=== PATIENT | male | born 1970 | race Caucasian/White ===

== ENCOUNTER → 2022-03-01 00:42 | Outpatient (CLI) | payer OTHER, SELFPAY ==
--- NOTE | 2022-03-01 07:30 | DI.MRI_ITS ---
Exam(s) MR UPPER JOINT RT WO EXAM: MR UPPER JOINT RT WO CLINICAL HISTORY: ? internal derangement,persistent pain,m25.511 TECHNIQUE: Multiplanar multisequence MRI of the shoulder was performed. COMPARISON: CR XR EYE FOREIGN BODY from 03/01/2022 FINDINGS: MARROW:No evidence of fracture or Hill-Sachs deformity. There are confluence of degenerative subarti cular cysts in the greater tuberosity (see below). No degenerative subarticular cyst in the lesser t uberosity nor within the osseous glenoid. ROTATOR CUFF MECHANISM: AC JOINT/ACROMIUM: AC joint exhibits only mild degenerative change. No prominent downgoing osteophyt es. No calcification evident within the coracoacromial ligament.. There is no evidence of os acromiale. Supraspinatus: There is articular surface side partial tearing of the supraspinatus at the foot pad i nsertional aspect on the greater tuberosity. This is immediately subjacent to the degenerative subar ticular cyst at this level. There is no full-thickness tear. No fluid in the subacromial-subdeltoid bursa. No muscle atrophy. Infraspinatus: Intact. No evidence of tear nor muscle atrophy. Teres Minor: Intact. No evidence of tear nor muscle atrophy. Subscapularis/anterior cuff: Mild tendinitis signal. No tear. BICEPS TENDON: Normally position in the intertubercular groove. No evidence of tear. No tenosynovitis. LABRUM: No labral tear identified. No evidence of paralabral cyst. Inferior glenohumeral ligament is intact. GLENOHUMERAL JOINT: No joint effusion nor obvious loose intra-articular bodies. No chondral defects. No osteophytes. No degenerative subarticular cysts. QUADRILATERAL SPACE: No evidence of mass in the region of the axillary nerve and dorsal circumflex hu meral vessels. Visualized triceps muscle at this level appears unremarkable. IMPRESSION: 1. There is a partial-thickness tear of the supraspinatus tendon at the foot pad insertional aspect j ust above the greater tuberosity. There is cystic degenerative change within the greater tuberosity i mmediately subjacent this finding. There is no retraction of the musculotendinous junction. Infraspin atus appears unremarkable. 2. Mild tendinitis signal noted in the anterior cuff-subscapularis but no significant tear of this st ructure. 3. Biceps tendon is intact and there are no obvious labral tears evident. No significant degenerative changes in the glenohumeral joint. No joint effusion. No loose intra-annette cular bodies. DATA REPOSITORY:
--- NOTE | 2022-03-01 07:30 | DI.RAD_ITS ---
Exam(s) XR EYE FOREIGN BODY EXAM: XR EYE FOREIGN BODY CLINICAL HISTORY: Pre MRI - check for metal,rt shoulder pain. TECHNIQUE: 2D digital imaging was performed. COMPARISON: No exams were available for comparison FINDINGS: 3 views No fractures. No fluid in the visualized paranasal sinuses. No radiopaque foreign body in the regio n of the orbits. IMPRESSION: No radiopaque foreign bodies. DATA REPOSITORY: RADIATION DOSE DELIVERED:
== END ==
PROVIDERS: PCP Family Medicine; Visit Provider Nurse Practitioner Family
DX: M75.101 Unspecified rotator cuff tear or rupture of right shoulder, not specified as traumatic (principal)
CPT/HCPCS: 70030; 73221

== ENCOUNTER 2022-04-10 14:56 | Outpatient (CLI) | payer OTHER, SELFPAY ==
--- NOTE | 2022-04-10 14:45 | DI.RAD_ITS ---
Exam(s) XR SHOULDER RT COMPLETE 2+V EXAM: XR SHOULDER RT COMPLETE 2+V CLINICAL HISTORY: RIGHT SHOULDER PAIN. TECHNIQUE: 2D digital imaging was performed. COMPARISON: No exams were available for comparison FINDINGS: 3 views No evidence of fracture or dislocation. No joint space narrowing. Subacromial space is not diminish ed and there are no soft tissue calcifications. Deformity at the midshaft of the clavicle is probabl y healed fracture site. AC joint is not distracted and there are only minimal degenerative changes i n the AC joint. IMPRESSION: No significant findings in the glenohumeral joint. DATA REPOSITORY: RADIATION DOSE DELIVERED:
== END 2022-04-10 14:57 | disposition home or self-care (01) ==
LOC: DIORS 14:57
PROVIDERS: PCP Family Medicine; Referring Provider Family Medicine; Visit Provider Student in an Organized Health Care Education/Training Program
DX: M25.511 Pain in right shoulder (principal); M25.811 Other specified joint disorders, right shoulder
CPT/HCPCS: 73030

== ENCOUNTER → 2023-02-03 01:39 | Outpatient (CLI) | payer BC, SELFPAY ==
[2023-02-03] MEDS: Barium Sulfate 60% W/V 355 ML BTL PO (11:02)
[2023-02-03] MEDS: Barium Sulfate 98% W/W 140 ML BTL 70 ML PO (11:02)
[2023-02-03] MEDS: Simethicone/Sod Bicarb/Cit Ac, 4 gram PACKET 1 PACKET PO (11:05)
--- NOTE | 2023-02-03 11:06 | DI.RAD_ITS ---
Exam(s) RF BARIUM SWALLOW EXAM: RF BARIUM SWALLOW CLINICAL HISTORY: progressive dysphagia cp level,r13.14 TECHNIQUE: 2D and realtime digital imaging was performed. CONTRAST MATERIAL: Oral barium Oral water soluble contrast was administered. COMPARISON: No exams were available for comparison FINDINGS: FINDINGS: This esophagram was performed both standing and recumbent. There was no aspiration evident. No prominent hypertense upper esophageal sphincter. There is a ismael y thin shallow web on the anterior aspect of the uppermost esophagus which projects only into the ant erior 8th of the lumen and does not appear obstructive. There is no stricture at this level. There is some tertiary waves demonstrated in the esophagus. No Schatzki ring evident but there is a hiatal hernia which measures up to 6 cm by 5.5 cm. There does not appear to be an obvious stricture at thi s level. IMPRESSION: 6 x 5 cm hiatal hernia. Tertiary waves demonstrated in the esophagus but no prominent stasis nor ach alasia nor obvious strictures. Thin self-web noted on the anterior wall of the uppermost esophagus which is nonobstructive. RADIATION DOSE DELIVERED: hedy Dewey=52.7 mGy
== END ==
PROVIDERS: PCP Family Medicine; Visit Provider Otolaryngology
DX: K44.9 Diaphragmatic hernia without obstruction or gangrene
CPT/HCPCS: 74221; J3490

== ENCOUNTER → 2023-02-11 00:25 | Outpatient (CLI) | payer BC, SELFPAY ==
--- NOTE | 2023-02-11 07:15 | DI.US_ITS ---
Exam(s) US NEEDLE LOCAL OTHER WO RAD EXAM: US NEEDLE LOCAL OTHER WO RAD CLINICAL HISTORY: rt tr5 lesion,ultrasound guided bx,abnl imaging,e04.1. COMPARISON: US US SOFT TISSUE HEAD/NECK from 01/06/2023 TECHNIQUE: Ultrasound was provided for Dr. Bowers for guidance with performing thyroid nodule biopsy . FINDINGS: The see procedure note for details. DATA REPOSITORY:
--- NOTE | 2023-02-11 11:40 | PAPNONF_PTH ---
PATIENT: Rob Haynes LOC: [facility] U#:[id number] AGE/SX: 54/M ROOM: RE02/11/[address]: Hubert Bowers MD : 1970 BED: DIS: SPEC #: [id number] RECD: 02/11/23 12:56 STATUS: NEELAM REQ #: [id number] LANDON: 02/11/23 11:[address]: Hubert Bowers DEPT: [facility] Cytology RECD BY: Ioana Rosales ENTERED: 02/11/23 12:58 SP TYPE: PAPBASIL TYLER DR: Delfina Pulido Tissues: 1 - BODY FLUID CYTO-FINE NEEDLE ASPIRATE-[facility] Procedures: BODY FLUID CYTO-FINE NEEDLE ASPIRATE-[facility] Comments: [id number] (PATH FNA CONSULT) (REFRIGERATED)
--- NOTE | 2023-02-11 11:48 | W.PROCNOTE ---
Date of service: 02/11/23 Time of Service: 11:48 Procedure Note Date of procedure: 02/11/23 Procedure: Ultrasound-guided FNA, right thyroid nodule, pathology present Procedure Diagnosis: Right thyroid nodule, TR 5, 1.1 cm Procedure Indications: Patient with a right-sided TR five 1.1 cm nodule within the thyroid. Options were explained to the patient regarding further management. He elected to undergo the above procedure. Consent was filled out and signed prior to the procedure. The below was then performed. Procedure Description: The patient was positioned in the supine position with his neck slightly extended. Ultrasound was used to localize the thyroid nodule on the right and then 1% lidocaine with 1/100,000 epinephrine was injected in the skin and subcutaneous tissues overlying the thyroid nodule. 25-gauge needle was then passed repeatedly into the thyroid nodule, and then handed to pathology who confirmed adequate cellularity. 2 additional passes were made for potential Afirma testing. There is no significant bleeding. After ensuring adequate hemostasis, sterile dressing was applied. The patient was then allowed to stand and ambulate. His vital signs remained stable. He will remove the bandage in the next hour. He will use ibuprofen or Tylenol for any discomfort. He will call if he does not hear from me within 1 week with regard to pathology results. He will call with any signs of infection or any concerns. He had no further questions. He is comfortable with plan.
== END ==
PROVIDERS: PCP Family Medicine; Visit Provider Otolaryngology
DX: E04.1 Nontoxic single thyroid nodule (principal)
CPT/HCPCS: 10005; 76942; 88104

== ENCOUNTER 2023-03-17 10:23 | Day surgery (SDC) | payer BC, SELFPAY ==
--- NOTE | 2023-03-16 18:09 | W.PM.DSUDISC ---
Date of service: 03/17/23 Time of Service: 12:09 Discharge Plan Disposition Patient Disposition: Home Condition: Good Discharge Details Reason For Visit: Diagnostic EGD Attending Provider: Juan Carlos Livingston Primary Care Provider: Luz Marina Gamble Home Meds and New Rx's Prescriptions: Continued lisinopril 20 mg tablet 20 mg PO DAILY duloxetine 20 mg capsule,delayed release(DR/EC) 20 mg PO DAILY atorvastatin [Lipitor] 20 mg tablet 20 mg PO DAILY metoprolol succinate 50 mg tablet extended release 24 hr 50 mg PO DAILY tamsulosin 0.4 mg capsule 0.4 mg PO DAILY cyanocobalamin (vitamin B-12) 1,000 mcg capsule 1,000 mcg PO DAILY folic acid 1 mg tablet 1 mg PO DAILY fluticasone propionate [Flonase Allergy Relief] 50 mcg/actuation spray,suspension 2 spray intranasal Q12H Rx Instructions: administer into each nostril buprenorphine-naloxone 2-0.5 mg tablet, sublingual 1 tab sublingual DAILY Patient Comments: Per Pt 03/12/23 pt self medicates, is down to 1 mg.CLAUDIA Booker gabapentin 300 mg capsule 900 mg PO HS epinephrine [EpiPen] 0.3 mg/0.3 mL auto-injector 0.3 mg IM DIRECTED PRN Rx Instructions: do not exceed 3 doses per episode meloxicam 7.5 mg tablet 7.5 mg PO DAILY omeprazole 20 MG capsule,delayed release(DR/EC) 20 mg PO DAILY zolpidem 10 mg tablet 10 mg PO HS PRN Patient Comments: TAKE 1 TABLET BY MOUTH EVERY DAY AT BEDTIME NEEDED Discharge Instructions Instructions: Portal Hypertension (GEN) Additional Instructions: Anish, we were able to complete your upper endoscopy today without any difficulty. With regards to the symptoms that you have been experiencing, I suspect this may be a result of a gastric inlet patch. We talked a little bit about this in the office. Essentially, it is an abnormal growth of stomach lining tissue that occurs in your esophagus. As it produces acid, that tends to cause irritation of the upper portion of the swallowing pathway resulting in the sensation of a mass, or something in your throat. The typical treatment involves use of proton pump inhibitors. You are already prescribed a medication called omeprazole. This is the most common type of proton pump inhibitor, and generally is one of the better options for your symptoms. It is also possible that Helicobacter pylori is contributing to this. H. pylori is an infection that ramps up stomach acid production. If there is any evidence of it in the biopsies, then you will need treatment with an antibiotic. Incidentally, you also have some changes in your stomach that appear consistent with mild portal hypertensive gastropathy. This typically occurs in patients who have chronic changes of the liver that results in increased pressure within the blood vessels that drain into it. I recommend stopping all alcohol use, and tobacco products if possible. Portal hypertensive gastropathy is typically seen in patients with cirrhosis, and alcohol consumption is the most typical cause of cirrhosis in these cases. If unchecked, this can result in chronic liver failure which can become a life-threatening problem. Once I have the results of all the biopsies done today I will be in touch with my recommendations with any other treatments. 1. If tolerated, consume a soft, low fiber diet for 1-2 days. 2[address] Do not drive, drink alcohol, operate machinery, make critical decisions, or do activities that require coordination or balance for 24 hours. 3. You may experience a sore throat for 24 to 48 hours. You may use throat lozenges or gargle with warm salt water to relieve the discomfort. 4. Because air was put into your stomach during the procedure, you may experience some belching. 5. Go directly to the emergency room if you notice any of the following: Develop chills (warm to touch), or if you have a thermometer and your temperature is above 101 Difficulty breathing or difficultly swallowing Persistent vomiting Severe abdominal pain, other than gas cramps Severe chest pain Black, tarry stools Any bleeding ? exceeding one tablespoon 6. Call your physician if the site where your intravenous was started becomes red, swollen, painful, and warm to touch. 7. Your physician has reviewed your pre-procedure medications. Please continue to take those medications as previously ordered. You will be given specific information/education regarding any changes to your medications before leaving. Activity:: Activity as Tolerated Diet:: As Tolerated Discharge Orders Discharge Orders: Discharge Order (Routine); Ordered 03/16/23 Ordered By: Juan Carlos Livingston DS: Diagnosis Discharge Diagnosis (1) Esophageal dysphagia: Status: Acute Asessment and Plan: Possible gastric inlet patch; follow-up on pathology results
--- NOTE | 2023-03-16 18:11 | ENDO_ITS ---
Date of service: 03/17/23 Time of Service: 12:13 Endoscopy Report DATE OF PROCEDURE: 03/17/23 PRE-OP DIAGNOSIS: Dysphagia POST-OP DIAGNOSIS: other (Portal hypertensive gastropathy, gastric polyp, possible gastric inlet patch) PROCEDURE: EGD with biopsies SURGEON: Juan Carlos Livingston ANESTHESIA TYPE: General:No Airway ESTIMATED BLOOD LOSS: 10 PATHOLOGY: other (Random biopsies of gastric antrum and body, gastric polyp, upper esophageal biopsies) COMPLICATIONS: None DISPOSITION: same day INDICATIONS: Anish is 52 years old and he has been experiencing dysphagia refractory to medical therapy. [place] swallow does not reveal a source. PROCEDURE START TIME: :47 PROCEDURE END TIME: FINDINGS: Hypertensive gastropathy, gastric polyp, grade 3 hiatal hernia, gastric inlet patch PROCEDURE DESCRIPTION: After the initiation of monitored anesthetic care, and with the assistance of a bite block, I advanced a standard gastroscope through the mouth past the hypopharynx and into the esophagus.? Under the direct vision of the scope, I advanced down the esophagus into the stomach.? Once I entered the stomach, I performed a brief inspection, followed by retroflexion towards the gastric cardia.? There is a grade 3 hiatal hernia. There was no evidence of ulceration around the diaphragmatic hiatus. The camera was turned antegrade, and passed down towards the gastric antrum. There appeared to be chronic changes of the mucosa mostly arising from the gastric antrum and slightly into the gastric body. Clinically, they appear consistent with portal hypertensive gastropathy. I saw no evidence of any gastric ectatic varices. There is no discrete ulceration. Next, I advanced the camera through the pylorus into the duodenum. The duodenum was totally normal-appearing. I then brought the camera back into the stomach. In order to rule out Helicobacter pylori, I perform random biopsies of gastric antrum and body using cold forceps. There was minimal bleeding. I brought the camera back up to the GE junction. Just past the GE junction at the top of the gastric rugae was a small gastric polyp. I removed this with cold forceps, and there was minimal bleeding here. The Z-line was normal and regular appearing around 37 cm from the incisors. I then brought the camera back up into the lower esophagus. The lower and mid esophagus were totally normal. As the camera back up into the upper esophagus was a small patch towards the patient's right side that appeared clinically consistent with a gastric inlet patch. I did perform cold forceps biopsies here. There was minimal bleeding. I sent the camera back down into the stomach and completely emptied it afterwards. I then brought the camera out along the length of the esophagus desufflated along the way. The camera was removed, and the patient was allowed awaken from anesthesia and transferred to the day surgery unit.
[2023-03-17 10:56] VITALS: BP 168/104; PULSE 71; RESP 16; TEMP 36.3; O2SAT 99
[2023-03-17] MEDS: Lactated Ringers 1,000 ML 80 ML IV (11:15)
--- NOTE | 2023-03-17 11:38 | W.ANESPRE ---
General Info Date of Service Date Performed: 03/17/23 Height: 5 ft 10 in Weight: 96.4 kg Body Mass Index (BMI): 30.4 Surgical Procedure: Operation Date: 03/17/23 12:05 Proposed Procedure Side Surgeon p Gastroscopy Juan Carlos Livingston MD Meds Allergies and Home Medications Allergies Allergy/AdvReac Type Severity Reaction Status Date / Time soy Allergy Severe Anaphylaxsi Verified 03/17/23 10:35 s Home Medication Medication Instructions Recorded omeprazole 20 mg capsule,delayed 20 mg PO DAILY 04/04/16 release buprenorphine 2 mg-naloxone 0.5 mg 1 tab sublingual DAILY 12/13/22 sublingual tablet epinephrine 0.3 mg/0.3 mL 0.3 mg IM DIRECTED PRN 12/13/22 injection, auto-injector (EpiPen) fluticasone propionate 50 2 spray intranasal Q12H 12/13/22 mcg/actuation nasal spray,suspension (Flonase Allergy Relief) gabapentin 300 mg capsule 900 mg PO HS 12/13/22 meloxicam 7.5 mg tablet 7.5 mg PO DAILY 12/13/22 atorvastatin 20 mg tablet (Lipitor) 20 mg PO DAILY 01/29/23 cyanocobalamin (vitamin B-12) 1,000 mcg PO DAILY 01/29/23 1,000 mcg capsule folic acid 1 mg tablet 1 mg PO DAILY 01/29/23 metoprolol succinate 50 mg 50 mg PO DAILY 01/29/23 tablet,extended release 24 hr tamsulosin 0.4 mg capsule 0.4 mg PO DAILY 01/29/23 duloxetine 20 mg capsule,delayed 20 mg PO DAILY 03/13/23 release lisinopril 20 mg tablet 20 mg PO DAILY 03/13/23 zolpidem 10 mg tablet 10 mg PO HS PRN 03/14/23 Current Visit Medications: Current Medications Generic Name Dose Route Start Last Admin Trade Name Freq PRN Reason Stop Dose Admin Hyoscyamine Sulfate 0.125 mg 03/16/23 18:12 Hyoscyamine 0.125 Mg Sl/Oral/Chew SL 04/15/23 18:11 DIRECTED PRN Ringer's Solution 1,000 mls @ 80 mls/hr 03/17/23 06:00 03/17/23 11:15 IV 04/13/23 23:59 80 mls/hr INFUSION JARROD Administration IV Miscellaneous Supplies 1 each 03/17/23 06:00 Iv Access IV 04/13/23 23:59 DIRECTED JARROD Ondansetron HCl 4 mg 03/16/23 18:12 Ondansetron 4 Mg/2 Ml Vial IVP 04/15/23 18:11 Q4H PRN PRN Nausea / Vomiting Sodium Chloride 0 ml 03/17/23 06:00 Normal Saline Flush 10 Ml Syr IV 04/13/23 23:59 PRN PRN Sodium Chloride 0 ml 03/17/23 06:00 Normal Saline 10 Ml Vial IJ 04/13/23 23:59 DIRECTED PRN Sterile Water 0 ml 03/17/23 06:00 Water,Injection,Sterile 10 Ml Vial IJ 04/13/23 23:59 DIRECTED PRN PFSH Active Problems Active Problems: Problem Status Onset Code Esophageal dysphagia R13.19 Thyroid nodule greater than or equal to 1 cm in diameter incidentally noted on imaging study E04.1 Pharyngoesophageal dysphagia R13.14 Right shoulder pain M25.511 Shoulder pain, acute M25.519 GERD (gastroesophageal reflux disease) K21.9 Peripheral neuropathy G62.9 Hypertension I10 Hypercholesteremia E78.00 Medical History Medical History History of prostate disorder per patient Allergic rhinitis Obstructive sleep apnea Benign prostatic hyperplasia with lower urinary tract symptoms Hyperlipidemia Essential hypertension Polyneuropathy Nontoxic single thyroid nodule Other pancytopenia Surgical History Surgical History History of nasal septoplasty H/O vasectomy History of umbilical hernia repair History of surgery on wrist pins in wrist from fracture Tobacco Smoking/Tobacco Use Status: Current every day Tobacco Type: smokeless tobacco Substance Use Substance use type: does not use Details: alcohol 03/16/23- 4-5 glasses of wine Vital Signs and Lab Results Vital Signs Most Recent Vital Signs in EMR: Most Recent Vital Signs Temp Pulse Resp BP Pulse Ox 36.3 C L 71 16 168/104 H 99 03/17/23 10:56 03/17/23 10:56 03/17/23 10:56 03/17/23 10:56 03/17/23 10:56 Lab Results Blood Type / Crossmatch: No Data to Display Complete Blood Count: No Data to Display Complete Metabolic Panel: No Data to Display Liver Function Panel: No Data to Display Coagulation Panel: No Data to Display Cardiac Panel: No Data to Display Arterial Blood Gas: No Data to Display Venous Blood Gas: No Data to Display Pancreas Panel: No Data to Display Thyroid Panel: No Data to Display Infectious Disease: No Data to Display Blood Cultures: No Data to Display Toxicology Panel: No Data to Display Anesthesia Assessment and Plan Anesthesia History Personal History: No History of Anesthesia Complications Family History: No Family History of Anesthesia Complications Exercise Tolerance Exercise Tolerance: Metabolic Equivalents>4 Pertinent Negatives Pertinent Negatives: No Symptoms of GERD (RX/Nuñez) Cardiac & Pulmonary Exam Cardiac Exam: Normal S1/S2 Heart Sounds Pulmonary Exam: Clear Bilateral Breath Sounds Implantable Cardiac Device Does patient have a Pacemaker or an ICD?: No Airway Exam Known Difficult Airway: No Mallampati Class: 3 Mouth Opening: Narrow (< 3cm) Thyromental Distance: Less than 3 cm Facial Hair: Full Parmar Neck Range of Motion: Full ROM Neck Circumference: Thick Teeth Condition: Normal Dentition ASA Classification ASA Score: ASA 2 Emergency Case?: No NPO Status NPO Status: NPO Clears >2 hours, Solids >8 hours Anesthesia Plan Resuscitation Status: Full Code Anesthesia Technique: General Anesthesia Airway Planned: Natural Airway Monitors Used: Standard Monitors Preoperative Comments:: Daily ETOH, Heavy
[2023-03-17 11:41] VITALS: BMI 30.4
--- NOTE | 2023-03-17 11:48 | STOM_PTH ---
PATIENT: Rob Haynes LOC: [facility] U#:[id number] AGE/SX: 52/M ROOM: RE03/17/[address]: Juan Carlos Livingston MD : 1970 BED: DIS: 03/17/2023 SPEC #: [id number] RECD: 03/17/23 17:38 STATUS: NEELAM [facility] #: [id number] LANDON: 03/17/23 11:[address]: Juan Carlos Livingston DEPT: Surgical Specimen RECD BY: Ioana Rosales ENTERED: 03/17/23 17:40 SP TYPE: STOMACH OTHR DR: Luz Marina Gamble Tissues: 1 - STOMACH BIOPSY 2 - STOMACH BIOPSY 3 - STOMACH BIOPSY 4 - ESOPHAGUS BIOPSY Procedures: GROSS AND MICRO LEVEL 4 Comments: [id number]
[2023-03-17 12:02] VITALS: BP 132/93; PULSE 73; RESP 18; TEMP 36.5; O2SAT 92
--- NOTE | 2023-03-17 12:11 | W.ANESPOSTOP ---
Postoperative Evaluation Date, Time and Location Date Performed: 03/17/23 Time Performed: 12:18 Patient Location: Day Surgery Unit Vital Signs Most Recent Imported Vital Signs: Most Recent Vital Signs Temp Pulse Resp BP Pulse Ox 36.5 C 73 18 132/93 H 92 03/17/23 12:02 03/17/23 12:02 03/17/23 12:02 03/17/23 12:02 03/17/23 12:02 Pain Score Most Recent Pain Score: Most Recent Pain Score Pain Level 1 03/17/23 10:56 Assessment Mental Status: Awake (Alert & Oriented to Patient Baseline) Airway and Respiratory Function: Patent airway with normal (patient baseline) respiratory exam Cardiovascular Function: Hemodynamically Stable Hydration Status: Adequately Hydrated Nausea & Vomiting: No Nausea or Vomiting Pain: Pt. Denies Any Pain Peripheral Nerve Block: Patient did not receive a nerve block
[2023-03-17 12:26] VITALS: BP 140/96; PULSE 68; RESP 18; TEMP 36.5; O2SAT 95
== END 2023-03-17 10:24 | disposition home or self-care (01) ==
LOC: SUR 10:24
PROVIDERS: PCP Internal Medicine; Visit Provider Surgery
PROC: 0DJ68ZZ Inspection of Stomach, Via Natural or Artificial Opening Endoscopic (ICD-10-PCS; CPT 43235; principal; 2023-03-17 12:00)
DX: R13.19 Other dysphagia (principal); K31.89 Other diseases of stomach and duodenum; K31.7 Polyp of stomach and duodenum; K44.9 Diaphragmatic hernia without obstruction or gangrene; Z87.891 Personal history of nicotine dependence; K21.9 Gastro-esophageal reflux disease without esophagitis; I10 Essential (primary) hypertension; G47.33 Obstructive sleep apnea (adult) (pediatric)
CPT/HCPCS: 43239; 88305; J2001

== ENCOUNTER 2024-03-03 06:41 | Emergency (ER) | payer MEDICAID, SELFPAY ==
[2024-03-03] VITALS (33 sets, daily range): BP systolic 155–195; BP diastolic 90–119; PULSE 118–131; RESP 20; TEMP 36.5; O2SAT 94–100
[2024-03-03] MEDS: LORazepam 1 MG TAB PO (07:36)
--- NOTE | 2024-03-03 08:11 | ED.GENADUL_ITS ---
Discharge Plan Disposition Patient Disposition: Home Condition: Stable Discharge Details Clinical Impression: Sensation of foreign body, Increased sputum production, Thrombocytopenia Primary Care Provider: Luz Marina Gamble ED Provider: Joce Steward Home Meds and New Rx's Prescriptions: New dexamethasone 20 mg tablet 40 mg PO DAILY Qty: 6 0RF Rx Instructions: start 03/04/24 Continued lisinopril 20 mg tablet 20 mg PO DAILY duloxetine 20 mg capsule,delayed release(DR/EC) 20 mg PO DAILY atorvastatin [Lipitor] 20 mg tablet 20 mg PO DAILY metoprolol succinate 50 mg tablet extended release 24 hr 50 mg PO DAILY tamsulosin 0.4 mg capsule 0.4 mg PO DAILY cyanocobalamin (vitamin B-12) 1,000 mcg capsule 1,000 mcg PO DAILY folic acid 1 mg tablet 1 mg PO DAILY buprenorphine-naloxone 2-0.5 mg tablet, sublingual 1 tab sublingual DAILY Patient Comments: Per Pt 03/12/23 pt self medicates, is down to 1 mg.dAeRN omeprazole 20 MG capsule,delayed release(DR/EC) 20 mg PO DAILY zolpidem 10 mg tablet 10 mg PO HS PRN Patient Comments: TAKE 1 TABLET BY MOUTH EVERY DAY AT BEDTIME NEEDED Discontinued epinephrine [EpiPen] 0.3 mg/0.3 mL auto-injector 0.3 mg IM DIRECTED PRN Rx Instructions: do not exceed 3 doses per episode Discharge Instructions Instructions: Immune thrombocytopenia (ITP), Bleeding Precautions Additional Instructions: Your platelet count remains low today at 30. You were started on dexamethasone today in the emergency department. Your next dose is tomorrow. Please be sure to complete the full 4 day course as prescribed. Please follow-up with your telecommunications line mechanic. Call today to schedule follow-up. Be sure to let them know you have been started on dexamethasone. Please contact your primary care physician to arrange follow-up. Call today. Please follow-up with Dr. Bowers, ENT. Call today. Return to the ER immediately for any worsening or new concerning symptoms. Stand Alone Forms: Work Release Referrals: [facility]NT [Provider Group] Discharge Data Discharge Date/Time-TO BE ENTERED AT DEPARTURE: 03/03/24 13:12 HPI General Mode of arrival: ambulatory . Date/Time Provider Initiated Documentation: 03/03/24 06:46 . Limitations to Documentation: no limitations . Information obtained by: patient . 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 Patient describes feeling a sensation of foreign body in the back of his throat and nose. Symptoms have been ongoing for the past 1.5 years. Symptoms seem worse recently. He does intermittently cough up sputum with a brown tinge. Of note, patient chews tobacco chronically. Related Data Home Medications ?Medication ?Instructions ?Recorded ?Confirmed omeprazole 20 mg capsule,delayed 20 mg PO DAILY 04/04/16 03/03/24 release buprenorphine 2 mg-naloxone 0.5 mg 1 tab sublingual DAILY 12/13/22 03/03/24 sublingual tablet atorvastatin 20 mg tablet (Lipitor) 20 mg PO DAILY 01/29/23 03/03/24 cyanocobalamin (vitamin B-12) 1,000 mcg PO DAILY 01/29/23 03/03/24 1,000 mcg capsule folic acid 1 mg tablet 1 mg PO DAILY 01/29/23 03/03/24 metoprolol succinate 50 mg 50 mg PO DAILY 01/29/23 03/03/24 tablet,extended release 24 hr tamsulosin 0.4 mg capsule 0.4 mg PO DAILY 01/29/23 03/03/24 duloxetine 20 mg capsule,delayed 20 mg PO DAILY 03/13/23 03/03/24 release lisinopril 20 mg tablet 20 mg PO DAILY 03/13/23 03/03/24 zolpidem 10 mg tablet 10 mg PO HS PRN 03/14/23 03/03/24 dexamethasone 20 mg tablet 40 mg (2 x 20 mg) PO DAILY #6 tabs 03/03/24 Previous Rx's ?Medication ?Instructions ?Recorded dexamethasone 20 mg tablet 40 mg (2 x 20 mg) PO DAILY #6 tabs 03/03/24 Allergies Allergy/AdvReac Type Severity Reaction Status Date / Time soy Allergy Severe Anaphylaxsi Verified 03/03/24 07:29 s General Stated Complaint: GenMedical JAYMIE: 3 Review of Systems Constitutional Constitutional: Reports as per HPI, Denies fever(s) and Denies headache(s) ENT Ears, Nose, Mouth, and Throat: Reports as per HPI and Denies headache(s) Neurologic Neurologic: Denies headache(s) Exam Const General: cooperative [facility] Head: atraumatic General nose exam: external nose normal and nares normal Face and sinus: normal facial exam Mouth: tongue normal, moist mucous membranes and no muffled voice Throat: posterior oropharynx normal and uvula midline Eyes Conjunctivae: normal conjunctivae Sclera: normal sclerae EOM: EOM intact bilaterally Neck Neck: trachea midline and supple Resp Auscultation: clear to auscultation bilaterally, no rales, no rhonchi and no wheezes Cardio Rate: tachycardic Rhythm: regular rhythm GI Palpation: soft, not firm, no guarding, no masses, not rigid and nontender Skin General skin exam: no rashes or lesions noted Neuro General: patient alert, patient awake, patient oriented x3 and tone normal Extrem General: no edema Psych Appearance: grossly normal Mental Status: mental status grossly normal Speech and Movement: speech and movement normal Mood: anxious mood Affect: anxious affect Course Vital Signs Vital signs: Vital Signs Temperature 36.5 C 03/03/24 06:53 Pulse 125 H 03/03/24 06:53 Respiratory Rate 20 03/03/24 06:53 Blood Pressure 186/98 H 03/03/24 06:53 Pulse Oximetry 99 03/03/24 06:53 Temperature 36.5 C 03/03/24 06:53 Temperature Source Temporal Artery Scan 03/03/24 06:53 Pulse 125 H 03/03/24 06:53 Respiratory Rate 20 03/03/24 06:53 Respiratory Effort Normal, Non-Labored 03/03/24 07:29 Blood Pressure 186/98 H 03/03/24 06:53 Blood Pressure Position Sitting 03/03/24 06:53 Pulse Oximetry 99 03/03/24 06:53 Oxygen Delivery Method Room Air 03/03/24 06:53 Oxygen Flow Rate 0 03/03/24 06:53 Pain Level 0 03/03/24 07:36 Medical Decision Making 730??53-year-old male who chews tobacco here with sensation of foreign body, concern for parasite in the back of his throat and nose, with associated intermittent cough productive of dark-colored sputum, symptoms ongoing for the past 1.5 years. Patient is tachycardic and hypertensive. He is quite anxious. No stridor or trismus. Plan to treat severe anxiety with Ativan and reassess. Patient has seen ENT in 2022 for his Pharyngoesophageal dysphagia. I will have him follow-up with ENT for reassessment. I am concerned about the potential for malignancy. --Patient reassessed and still feeling anxious although improved after Ativan. 1000 --patient's here who provides additional history noting recently seen by hematology at [facility] and had bone marrow biopsy. She notes history of low platelets. Plan from hematology is not clear at this point. -- I obtained and reviewed outside hospital records from [facility] including bone marrow biopsy which shows hyper cellular bone marrow, findings concerning for immune thrombocytopenia. Platelets were noted to be 29 on 02/17/2024. 1200 --I spoke with the on-call telecommunications line mechanic, Dr. Mtz at [facility], discussed ED presentation and course, He reviewed medical record, he recommends follow-up with Dr. Engle. Patient has no evidence of significant bleeding. His hemoglobin is normal. I do not believe IVIG or platelet transfusion is indicated at this point. Given concern for potential mucosal bleeding we will initiate treatment with dexamethasone 40 mg orally for the next 4 days. I will have him follow-up with hematology. I will also have him follow-up with his PCP. I did attempt to contact the patient's PCP and unfortunately no one was available. I left voice message. Patient reassessed and notes anxiety improved somewhat. Patient notes lack of sleep and requesting discharge to go home and rest. I spoke with the patient and his about need for follow-up with ENT. They understand the importance of follow-up and the need for additional outpatient diagnostics. Usual customary discharge instructions reviewed with the patient and his . Lab Data Lab results reviewed: Yes I reviewed the patient's lab results. Labs: Laboratory Tests Range/Units 03/03/24 03/03/24 03/03/24 10:15 10:28 10:58 WBC (4.4-10.8) 10^3/uL 6.57 RBC (4.36-5.78) 10^6/uL 4.36 Hgb (13.5-17.5) g/dL 14.8 Hct (40.0-50.0) % 41.1 MCV (80-95) fL 94 MCH (27.0-33.0) pg 33.9 H MCHC (32.0-36.0) % 36.0 RDW (11.8-14.1) % 11.8 Plt Count (130-400) 10^3/uL 30 L MPV (8.0-11.0) fL 13.5 H Immature Gran % % 0.3 Neutrophils % % 76.0 Lymphocytes % % 13.2 Monocytes % % 9.4 Eosinophils % % 0.2 Basophils % % 0.9 Nucleated RBC % (0.0-0.3) % 0.0 Absolute Neutrophils (1.2-6.7) 10^3/uL 4.99 Absolute Lymphocytes (1.2-3.4) 10^3/uL 0.87 L Absolute Monocytes (0.1-0.8) 10^3/uL 0.62 Absolute Eosinophils (0.0-0.7) 10^3/uL 0.01 Absolute Basophils (0.0-0.2) 10^3/uL 0.06 Sodium (136-145) mmol/L 135 L Potassium (3.5-5.1) mmol/L 3.5 Chloride (98-107) mmol/L 99 Carbon Dioxide (21.0-32.0) mmol/L 25.4 Anion Gap (3-11) mmol/L 10.6 BUN (7-18) mg/dL 4 L Creatinine (0.70-1.30) mg/dL 0.8 Est GFR (CKD-EPI 2020) (mL/min/1.73m2) 104.51 Glucose (74-106) mg/dL 129 H Calcium (8.5-10.1) mg/dL 9.3 Magnesium (1.8-2.4) mg/dL 1.7 L Total Bilirubin (0.2-1.0) mg/dL 2.06 H AST (15-37) U/L 67 H ALT (16-63) U/L 31 Alkaline Phosphatase (46-116) U/L 151 H Total Protein (6.4-8.2) g/dL 7.5 Albumin (3.4-5.0) g/dL 3.3 L TSH (0.36-3.74) uIU/mL 0.19 L Free T4 (0.76-1.46) ng/dL 1.93 H Add-On Test Request DONE ABO/Rh O Positive Antibody Screen NEGATIVE Range/Units 03/03/24 11:52 WBC (4.4-10.8) 10^3/uL RBC (4.36-5.78) 10^6/uL Hgb (13.5-17.5) g/dL Hct (40.0-50.0) % MCV (80-95) fL MCH (27.0-33.0) pg MCHC (32.0-36.0) % RDW (11.8-14.1) % Plt Count (130-400) 10^3/uL MPV (8.0-11.0) fL Immature Gran % % Neutrophils % % Lymphocytes % % Monocytes % % Eosinophils % % Basophils % % Nucleated RBC % (0.0-0.3) % Absolute Neutrophils (1.2-6.7) 10^3/uL Absolute Lymphocytes (1.2-3.4) 10^3/uL Absolute Monocytes (0.1-0.8) 10^3/uL Absolute Eosinophils (0.0-0.7) 10^3/uL Absolute Basophils (0.0-0.2) 10^3/uL Sodium (136-145) mmol/L Potassium (3.5-5.1) mmol/L Chloride (98-107) mmol/L Carbon Dioxide (21.0-32.0) mmol/L Anion Gap (3-11) mmol/L BUN (7-18) mg/dL Creatinine (0.70-1.30) mg/dL Est GFR (CKD-EPI 2020) (mL/min/1.73m2) Glucose (74-106) mg/dL Calcium (8.5-10.1) mg/dL Magnesium (1.8-2.4) mg/dL Total Bilirubin (0.2-1.0) mg/dL AST (15-37) U/L ALT (16-63) U/L Alkaline Phosphatase (46-116) U/L Total Protein (6.4-8.2) g/dL Albumin (3.4-5.0) g/dL TSH (0.36-3.74) uIU/mL Cancelled Free T4 (0.76-1.46) ng/dL Add-On Test Request ABO/Rh Antibody Screen Quality:SDOH Health Related Social Needs: No Data to Display PFSH All Active Problems (Updated 03/03/24 @ 12:06 by Joce Steward MD) Thrombocytopenia (Chronic) Increased sputum production (Acute) Sensation of foreign body (Acute) Esophageal dysphagia (Acute) Thyroid nodule greater than or equal to 1 cm in diameter incidentally noted on imaging study (Acute) Pharyngoesophageal dysphagia (Acute) Right shoulder pain (Acute) Shoulder pain, acute (Acute) GERD (gastroesophageal reflux disease) (Chronic) Peripheral neuropathy (Acute) Hypertension (Chronic) Hypercholesteremia (Acute) Medical History History of prostate disorder per patient Allergic rhinitis Obstructive sleep apnea Benign prostatic hyperplasia with lower urinary tract symptoms Hyperlipidemia Essential hypertension Polyneuropathy Nontoxic single thyroid nodule Other pancytopenia Surgical History History of esophagogastroduodenoscopy (~03/2023) Biopsies taken History of nasal septoplasty H/O vasectomy History of umbilical hernia repair History of surgery on wrist pins in wrist from fracture Social History Smoking/Tobacco Use Status: Current every day Tobacco Type: smokeless tobacco Smoking risk assessment performed?: Yes Substance use type: does not use Details: alcohol 03/16/23- 4-5 glasses of wine Housing: house Current gender identity: male Do you feel safe at home: Yes Do you feel safe in your relationship?: Yes PAWSS Have you Been Recently Intoxicated or Drunk Within the Last 30 days?: No Have you Ever Experienced Previous Episodes of Alcohol Withdrawal?: No Have you ever Experienced Withdrawal Seizures?: No Have you ever Experienced Delirium Tremens(DT)s?: No Have you ever undergone Alcohol Rehabilitation Treatment (i.e, inpt ot outpatient treatment programs)?: No Have you ever Experienced Blackouts?: No Have you ever Combined Alcohol with other Downers within the last 90 days?: No Have you ever Combined Alcohol with any other Substance of Abuse during the last 90 days?: No Result: 0
--- NOTE | 2024-03-03 09:45 | RT.EKG_ITS ---
APPROVED REPORT Exam: Resting ECG Reason for Exam: tachycardia Patient Location: E HR:122 bpm ECG Measurements Heart Rate 122 AXIS MN 155 P 19 QRSd 83 QRS 27 QT 335 T -49 QTc 478 Conclusion Sinus tachycardia...rate> 99 Inferior infarct, age indeterminate...Q>35mS, T neg, II III aVF
[2024-03-03 10:23] LABS: Abs Immature Grans 0.02 10^3/uL (0.0-0.06); Absolute Basophil Count 0.06 10^3/uL (0.0-0.2); Absolute Eosinophil Count 0.01 10^3/uL (0.0-0.7); Absolute Lymphocyte Count 0.87 10^3/uL (1.2-3.4); Absolute Monocyte Count 0.62 10^3/uL (0.1-0.8); Absolute Neutrophil Count 4.99 10^3/uL (1.2-6.7); Basophils % 0.9 %; Eosinophils % 0.2 %; HCT 41.1 % (40.0-50.0); HGB 14.8 g/dL (13.5-17.5); Immature Grans % 0.3 %; Lymphocytes % 13.2 %; MCH 33.9 pg (27.0-33.0); MCV 94 fL (80-95); Monocytes % 9.4 %; RBC 4.36 10^6/uL (4.36-5.78); RDW 11.8 % (11.8-14.1); RDW-SD 41.3 fL; WBC 6.57 10^3/uL (4.4-10.8)
[2024-03-03 10:40] LABS: Platelet Count 30 10^3/uL (130-400)
[2024-03-03 10:41] LABS: MPV 13.5 fL (8.0-11.0)
[2024-03-03 10:42] LABS: ALT 31 U/L (16-63); AST 67 U/L (15-37); Albumin 3.3 g/dL (3.4-5.0); Alkaline Phosphatase 151 U/L (46-116); Anion Gap 10.6 mmol/L (3-11); BUN 4 mg/dL (7-18); Bilirubin, Total 2.06 mg/dL (0.2-1.0); CO2 25.4 mmol/L (21.0-32.0); CREATININE 0.8 mg/dL (0.70-1.30); Calcium 9.3 mg/dL (8.5-10.1); Chloride 99 mmol/L (98-107); Estimated GFR 104.51 (mL/min/1.73m2); Glucose 129 mg/dL (74-106); Magnesium 1.7 mg/dL (1.8-2.4); Potassium 3.5 mmol/L (3.5-5.1); Sodium 135 mmol/L (136-145); Total Protein 7.5 g/dL (6.4-8.2)
[2024-03-03 12:08] LABS: Lab Add On Test DONE
[2024-03-03] MEDS: Dexamethasone 4 MG TAB 40 MG PO (12:35)
[2024-03-03 12:40] LABS: TSH (W/Ref FT4) 0.19 uIU/mL (0.36-3.74)
[2024-03-03 12:56] LABS: FREE T4 1.93 ng/dL (0.76-1.46)
--- NOTE | 2024-03-10 13:33 | NUR.NOTE ---
Access chart to get the PCP information. Nursing Note:
== END 2024-03-03 13:12 | disposition home or self-care (01) ==
PROVIDERS: Emergency Provider Student in an Organized Health Care Education/Training Program; PCP Family Medicine
DX: R09.A2 Foreign body sensation, throat (principal); F41.9 Anxiety disorder, unspecified; R09.3 Abnormal sputum; D69.6 Thrombocytopenia, unspecified; I10 Essential (primary) hypertension; E78.5 Hyperlipidemia, unspecified; R00.0 Tachycardia, unspecified
CPT/HCPCS: 80053; 86850; 86900; 86901; 93005; 99284; 83735; 84439; 84443; 85025; 93010; 99283; J8540

== ENCOUNTER 2024-03-11 13:12 | Outpatient (REF) | payer MEDICAID, SELFPAY ==
--- NOTE | 2024-03-11 11:30 | ORMUBX_PTH ---
PATIENT: Rob Haynes LOC: [facility] U#:[id number] AGE/SX: 53/M ROOM: RE03/11/[address]: Hubert Bowers MD : 1970 BED: DIS: 03/11/2024 SPEC #: [id number] RECD: 03/11/24 17:39 STATUS: NEELAM REQ #: [id number] LANDON: 03/11/24 11:[address]: Hubert Bowers DEPT: Surgical Specimen RECD BY: Ioana Rosales ENTERED: 03/11/24 17:40 SP TYPE: ORMUBX OTHR DR: Shashank Junior MD Tissues: 1 - MUCOSA, NOS Procedures: GROSS AND MICRO LEVEL 2 Comments: [id number]
== END 2024-03-11 13:13 | disposition home or self-care (01) ==
LOC: LBN 13:12
PROVIDERS: PCP Family Medicine; Visit Provider Otolaryngology
DX: R09.3 Abnormal sputum (principal); R09.82 Postnasal drip; R09.A0 Foreign body sensation, unspecified
CPT/HCPCS: 88305; 88302

== ENCOUNTER 2024-03-17 16:33 | Outpatient (REF) | payer BC, MEDICAID, SELFPAY ==
--- NOTE | 2024-03-17 15:45 | ORMUBX_PTH ---
PATIENT: Rob Haynes LOC: [facility] U#:[id number] AGE/SX: 53/M ROOM: RE03/17/[address]: Hubert Bowers MD : 1970 BED: DIS: 03/17/2024 SPEC #: [id number] RECD: 03/18/24 12:49 STATUS: NEELAM REQ #: [id number] LANDON: 03/17/24 15:[address]: Hubert Bowers DEPT: Surgical Specimen RECD BY: Ioana Rosales ENTERED: 03/18/24 12:49 SP TYPE: ORMUBX OTHR DR: Shashank Junior MD Tissues: 1 - MUCOSA, NOS Procedures: GROSS AND MICRO LEVEL 4 Comments: [id number]
== END 2024-03-17 16:34 | disposition home or self-care (01) ==
LOC: LBN 16:33
PROVIDERS: PCP Family Medicine; Visit Provider Otolaryngology
DX: R09.A2 Foreign body sensation, throat (principal)
CPT/HCPCS: 88305

== ENCOUNTER 2024-03-23 03:03 | Outpatient (CLI) | payer BC, MEDICAID, SELFPAY ==
--- NOTE | 2024-03-23 06:30 | DI.CT_ITS ---
Exam(s) CT SINUS WO EXAM: CT SINUS WO CLINICAL HISTORY: feels foreign bodies emerging from nose,postnasal drip,increased sputum,. Evaluat e for sinusitis. TECHNIQUE: Imaging Protocol: Axial computed tomography images with coronal and sagittal reformatted images were created and reviewed. COMPARISON: No exams were available for comparison FINDINGS: Frontal sinuses: Normally aerated. Ethmoid air cells: Normally aerated. Maxillary sinuses small amount of mucous retention at the floors of the maxillary sinuses, left great er than right. Sphenoid sinuses: Normally aerated. Ostiomeatal complexes: Patent. Nasal cavity: Septum is midline. Nasal cavity is clear. Visualized regional soft tissues: No acute findings. Orbits: Unremarkable. Bones: Unremarkable. Mastoid Air Cells: Normally aerated. Visualized portions of the brain: Unremarkable as visualized. IMPRESSION: Mild mucous retention at the floors of the maxillary sinuses, left greater than right. RADIATION DOSE DELIVERED: 106.65mGy.cm Total DLP DATA REPOSITORY: All CT scans at this facility are submitted to the National Radiology Data Registry (NRDR) Dose Index Registry (DIR) with the [employer] (ACR). RADIATION OPTIMIZATION: All CT scans at this facility use at least one of these dose optimization te chniques: automated exposure control; mA and/or kV adjustment per patient size (includes targeted exa ms where dose is matched to clinical indication); or iterative reconstruction.
== END 2024-03-23 03:23 ==
PROVIDERS: PCP Family Medicine; Visit Provider Otolaryngology
DX: J32.0 Chronic maxillary sinusitis (principal)
CPT/HCPCS: 70486

== ENCOUNTER 2024-12-17 15:40 | Outpatient (REF) | payer BC, SELFPAY ==
[2024-12-17 14:35] LABS: Abs Immature Grans 0.01 10^3/uL (0.0-0.06); HCT 41.1 % (40.0-50.0); HGB 14.3 g/dL (13.5-17.5); Immature Grans % 0.2 %; MCH 33.1 pg (27.0-33.0); MCHC 34.8 % (32.0-36.0); MCV 95 fL (80-95); MPV 11.2 fL (8.0-11.0); Platelet Count 118 10^3/uL (130-400); RBC 4.32 10^6/uL (4.36-5.78); RDW 11.8 % (11.8-14.1); RDW-SD 40.8 fL; WBC 5.33 10^3/uL (4.4-10.8)
[2024-12-17 15:15] LABS: ALT 53 U/L (16-63); AST 121 U/L (15-37); Albumin 3.3 g/dL (3.4-5.0); Alkaline Phosphatase 102 U/L (46-116); Anion Gap 11.2 mmol/L (3-11); BUN 3 mg/dL (7-18); Bilirubin, Total 1.4 mg/dL (0.2-1.0); CO2 24.8 mmol/L (21.0-32.0); Calcium 8.7 mg/dL (8.5-10.1); Calculated LDL 110 mg/dL (<100); Chloride 103 mmol/L (98-107); Cholesterol 169 mg/dL (<200); Estimated GFR 113.29 (mL/min/1.73m2); Folate 8.3 ng/mL (8.6-20.0); Glucose 128 mg/dL (74-106); HDL Cholesterol 48 mg/dL (>or=40); Potassium 4.0 mmol/L (3.5-5.1); Sodium 139 mmol/L (136-145); TSH (W/Ref FT4) 0.21 uIU/mL (0.36-3.74); Total Protein 7.0 g/dL (6.4-8.2); Triglyceride 59 mg/dL (<150); Vitamin B12 1118 pg/mL (193-986); Vitamin D 25 Total 60 ng/mL (30-100)
== END 2024-12-17 15:41 | disposition home or self-care (01) ==
LOC: NCHCN 15:40
PROVIDERS: PCP Family Medicine; Visit Provider Physician Assistant
DX: E78.5 Hyperlipidemia, unspecified (principal); G62.9 Polyneuropathy, unspecified
CPT/HCPCS: 80053; 80061; 82306; 82607; 82746; 84439; 84443; 85025